=== PATIENT | male | born 1940 | race Two or more races ===

== ENCOUNTER 2022-08-23 20:27 | Inpatient (IN) | payer BC, MEDICARE ==
[~2022-08-23] VITALS: Ht 182.9 cm; Wt 72.6 kg
--- NOTE | 2022-08-23 20:39 | NUR ---
Patient placed in room 1A
--- NOTE | 2022-08-23 20:50 | NUR ---
Dr. Da Silva evaluating patient at bedside. MSE in progress.
--- NOTE | 2022-08-23 20:51 | NUR ---
Per Dr. Da Silva no saline lock required at this time.
--- NOTE | 2022-08-23 21:39 | NUR ---
Xray at bedside.
[2022-08-23 21:45] LABS: HEMATOCRIT 32.5 % (36.7-47.1); MEAN CORPUSCULAR HEMOGLOBIN 32.9 uug (23.8-33.4); MEAN CORPUSCULAR VOLUME 97.7 fL (73.0-96.2); PLATELET COUNT (AUTO) 277 K/uL (152-348)
[2022-08-23 21:58] LABS: CARBON DIOXIDE 28 mmol/L (21-32); CHLORIDE 100 mmol/L (98-107); GLUCOSE 108 mg/dL (74-106); MAGNESIUM 2.2 mg/dL (1.8-2.4); UREA NITROGEN, BLOOD 45 mg/dL (7-18)
--- NOTE | 2022-08-23 22:13 | NUR ---
Called [employer] to notify of defibrillator firing. Spoke with [employer] rep which stated they will page [employer] client service consultant.
--- NOTE | 2022-08-23 22:26 | NUR ---
Per [employer] sediment remediation consultant Katlyn, she will be here to interrogate patient 30min-1hr.
--- NOTE | 2022-08-23 23:48 | NUR ---
called patient's portrait artist Dr Fuller - made aware for plan of transfer to [facility]
--- NOTE | 2022-08-23 23:54 | NUR ---
Dr Fuller called back for peer to peer with Dr Da Silva
--- NOTE | 2022-08-24 02:58 | NUR ---
Patient resting comfortably in bed. No signs of distress noted.
--- NOTE | 2022-08-24 07:11 | NUR ---
Report given to Geo RODRIGUEZ
--- NOTE | 2022-08-24 08:55 | NUR ---
Gave pt breakfast tray.
--- NOTE | 2022-08-24 09:21 | NUR ---
Pt resting in bed, no complaints, no distress noted. per , gave pt his AM medication: held Amlodipine and Coreg. Addendum: 08/24/22 at 0934 by [email or web address] MD authorized AM dose of Amlodipine for pt.
--- NOTE | 2022-08-24 09:38 | NUR ---
Left message for [facility] site operations manager.
--- NOTE | 2022-08-24 11:31 | NUR ---
L/M for rifle case repairer again.
--- NOTE | 2022-08-24 17:04 | NUR ---
received report from Geo HOPSON RN. pt acx4. presented to er for AICD evaluation. pt in no acute distres. vitals wnl. saira knee edema noted. vitals WNL. skin intact. BUN and Crea elevated. pt ambulatory. dr. guerrero will f/u care.
--- NOTE | 2022-08-24 17:50 | NUR ---
pt arrived at the unit.aox 4. ambulatory. vitals wnl. body check done skin intact. R knee non pitting edema and saira ankle pitting edema +4 noted.
[2022-08-24 17:53] VITALS: BP 125/50
[2022-08-24] MEDS ORDERED: DOCU100C36 PO (18:33)
[2022-08-24] MEDS ORDERED: GABA-536 PO (18:33)
[2022-08-24] MEDS ORDERED: SACU1TAB7 PO (18:33)
[2022-08-24] MEDS ORDERED: CARV25TA2 PO (18:33)
[2022-08-24] MEDS ORDERED: SPIR25TA6 PO (18:33)
[2022-08-24] MEDS ORDERED: LEVO88TA5 PO (18:33)
[2022-08-24] MEDS ORDERED: FURO40TA5 PO (18:33)
[2022-08-24] MEDS ORDERED: FERR-68 PO (18:33)
[2022-08-24] MEDS ORDERED: ATOR80TA PO (18:33)
[2022-08-24] MEDS ORDERED: AMIO100T4 PO (18:33)
[2022-08-24] MEDS ORDERED: GLIP2.5T3 PO (18:33)
[2022-08-24] MEDS ORDERED: EZET10TA15 PO (18:33)
[2022-08-24] MEDS ORDERED: TAMS-3 PO (18:33)
[2022-08-24] MEDS ORDERED: ASPI81TA31 PO (18:33)
[2022-08-24] MEDS ORDERED: MORPHINE SULFATE 2 MG/1 ML DISP.SYRIN IV PRN (19:00)
[2022-08-24] MEDS ORDERED: ONDANSETRON 4 MG/2 ML VIAL IV PRN (19:00)
[2022-08-24] MEDS ORDERED: ACETAMINOPHEN 325 MG TABLET PO PRN (19:00)
[2022-08-24] MEDS ORDERED: DOCUSATE SODIUM 100 MG CAPSULE PO PRN (19:00)
[2022-08-24] MEDS ORDERED: TEMAZEPAM 7.5 MG CAPSULE PO PRN (19:30)
[2022-08-24 20:00] VITALS: BP 125/58
[2022-08-24] MEDS: EZETIMIBE 10 MG TABLET PO SCH (20:07)
[2022-08-24] MEDS: DOCUSATE SODIUM 100 MG CAPSULE PO SCH (20:07)
[2022-08-24] MEDS: ATORVASTATIN 40 MG TABLET PO SCH (20:07)
[2022-08-24] MEDS: TAMSULOSIN HCL 0.4 MG CAP.SR.24H PO SCH (20:07)
[2022-08-25] VITALS: BP 122/60
--- NOTE | 2022-08-25 00:30 | NUR ---
Received a call from Earline case management manager at [facility] saying that there is a bed available but needs the attending physician to communicate with their physician at this time. Only on-call MD is available. Transfer was not done. Will endorse to incoming nurse.
[2022-08-25 04:00] VITALS: BP 111/45
[2022-08-25] MEDS: PANTOPRAZOLE SODIUM 40 MG TABLET.DR PO SCH (06:03)
[2022-08-25 06:30] LABS: HEMATOCRIT 30.7 % (36.7-47.1); MEAN CORPUSCULAR HEMOGLOBIN 33.2 uug (23.8-33.4); MEAN CORPUSCULAR VOLUME 96.4 fL (73.0-96.2); PLATELET COUNT (AUTO) 283 K/uL (152-348)
[2022-08-25] MEDS: AMIODARONE HCL 200 MG TABLET PO SCH ×4 (06:37→17:38)
--- NOTE | 2022-08-25 06:40 | NUR ---
Per Dr. Harris to give Amiodarone at 0630 and skip 0900 and to give the next dose at 1300. Per pharmacy, they are unable to cancel the 0900 as scheduled and to put it as not given. Will endorse to incoming nurse.
[2022-08-25 07:08] LABS: THYROID STIMULATING HORMONE 3.718 mIU/mL (0.358-3.740)
[2022-08-25 07:10] LABS: ALANINE AMINOTRANSFERASE 41 U/L (16-63); ALKALINE PHOSPHATASE 38 U/L (50-136); ASPARTATE AMINOTRANSFERASE 32 U/L (15-37); BILIRUBIN,TOTAL 0.5 mg/dL (0.2-1.0); CARBON DIOXIDE 25 mmol/L (21-32); CHLORIDE 104 mmol/L (98-107); CHOLESTEROL 89 mg/dL (<200); CREATININE 1.4 mg/dL (0.6-1.3); GLUCOSE 115 mg/dL (74-106); HDL CHOLESTEROL 36 mg/dL (40-60); MAGNESIUM 2.1 mg/dL (1.8-2.4); PHOSPHOROUS 3.5 mg/dL (2.5-4.9); POTASSIUM 4.1 mmol/L (3.5-5.1); TOTAL PROTEIN, SERUM 6.6 g/dL (6.4-8.2); TRIGLYCERIDES 101 MG/DL (30-150); UREA NITROGEN, BLOOD 34 mg/dL (7-18)
[2022-08-25] MEDS ORDERED: CARVEDILOL 12.5 MG TABLET PO SCH (08:00)
--- NOTE | 2022-08-25 08:16 | NUR ---
pt had episode of V Tach and Dr Godfrey notified about it
[2022-08-25] MEDS: FERROUS SULFATE 325 MG TABEC PO SCH (08:41)
[2022-08-25] MEDS: LEVOTHYROXINE SODIUM 88 MCG TABLET PO SCH (08:41)
[2022-08-25] MEDS: ASPIRIN 81 MG TAB.CHEW PO SCH (08:41)
[2022-08-25] MEDS: CARVEDILOL 25 MG TABLET PO SCH ×2 (08:42→17:39)
[2022-08-25] MEDS ORDERED: AMIODARONE HCL 200 MG TABLET PO SCH (09:00)
[2022-08-25 11:34] VITALS: BP 111/53
[2022-08-25 15:44] VITALS: BP 104/53
[2022-08-25 20:00] VITALS: BP 115/56
[2022-08-25] MEDS ORDERED: AMIO200T6 PO (20:09)
[2022-08-25] MEDS ORDERED: Morphine Sulfate Inj IV (20:09)
[2022-08-25] MEDS ORDERED: ATOR20TA PO (20:09)
[2022-08-25] MEDS ORDERED: ONDA4VIA23 IV (20:09)
[2022-08-25] MEDS ORDERED: DOCU-141 PO (20:09)
[2022-08-25] MEDS ORDERED: TAMS-3 PO (20:09)
[2022-08-25] MEDS ORDERED: TEMA7.5C PO (20:09)
[2022-08-25] MEDS ORDERED: PANT40TA49 PO (20:09)
[2022-08-25] MEDS: EZETIMIBE 10 MG TABLET PO SCH (20:27)
[2022-08-25] MEDS: DOCUSATE SODIUM 100 MG CAPSULE PO SCH (20:27)
[2022-08-25] MEDS: TAMSULOSIN HCL 0.4 MG CAP.SR.24H PO SCH (20:27)
[2022-08-25] MEDS: ATORVASTATIN 40 MG TABLET PO SCH (20:27)
--- NOTE | 2022-08-25 21:00 | NUR ---
Spoke to Deborah at [facility]. File is complete but no bed available yet. She will touch base with case hardener for an update tomorrow to set up the transfer. Dr. Birch made aware.
[2022-08-26] VITALS: BP 100/49
[2022-08-26 04:00] VITALS: BP 109/52
[2022-08-26] MEDS: PANTOPRAZOLE SODIUM 40 MG TABLET.DR PO SCH (06:12)
[2022-08-26] MEDS: LEVOTHYROXINE SODIUM 88 MCG TABLET PO SCH (08:15)
[2022-08-26] MEDS: CARVEDILOL 25 MG TABLET PO SCH ×2 (08:15→17:33)
[2022-08-26] MEDS: FERROUS SULFATE 325 MG TABEC PO SCH (08:15)
[2022-08-26] MEDS: ASPIRIN 81 MG TAB.CHEW PO SCH (08:15)
[2022-08-26] MEDS: AMIODARONE HCL 200 MG TABLET PO SCH ×3 (08:17→17:34)
[2022-08-26 12:07] VITALS: BP 138/70
[2022-08-26] MEDS ORDERED: HALOPERIDOL LACTATE 5 MG/1 ML VIAL IM ONE (15:30)
[2022-08-26 16:05] VITALS: BP 121/61
--- NOTE | 2022-08-26 18:02 | NUR ---
Pt. is alert and awake. Compliance with the care given. No change in condition noted. call light within reach. Able to ambulate with walker and assist. All need attended and met. Noted at his bedside. Plan was to transfer the pt. to [facility] and I contacted Diana case loader operator and she said is not arranged yet. Will keep monitoring the pt.
--- NOTE | 2022-08-26 19:20 | NUR ---
Received patient in bed alert oriented, no sob no chest pain, tele sinus rhythm at this time, no complain of pain, continent, uses urinal for bladder eliminations, cont to monitor.
[2022-08-26 20:13] VITALS: BP 111/53
[2022-08-26] MEDS: EZETIMIBE 10 MG TABLET PO SCH (20:17)
[2022-08-26] MEDS: DOCUSATE SODIUM 100 MG CAPSULE PO SCH (20:17)
[2022-08-26] MEDS: TAMSULOSIN HCL 0.4 MG CAP.SR.24H PO SCH (20:17)
[2022-08-26] MEDS: ATORVASTATIN 40 MG TABLET PO SCH (20:17)
[2022-08-27 00:20] VITALS: BP 108/52
[2022-08-27 04:13] VITALS: BP 122/62
[2022-08-27] MEDS: PANTOPRAZOLE SODIUM 40 MG TABLET.DR PO SCH (06:21)
--- NOTE | 2022-08-27 07:30 | NUR ---
MORNING REPORT: 1) MENTAL STATE: AOx4 2) BREATHING: On RA - no sign of SOB, or distress observed. 3) SAFETY: Bed lowered, cooper, galvan within reach, no clutter around the bed, assured patient to reach out to RN if needed. 4) IV ACCESS: RFA 20g- site patent, clean, dry, no sign of infection or inflammation observed. 5) ELIMINATION: Patient has BRP 6) HYGIENE: Self caring 7) EATING & DRINKING: Cardiac diet - self feeder 8) SKIN : Intact 9) COMMUNICATION: No language barrier - speaks clear [place]. 10) VITALS: Within limits 11) PLAN: (i) To go home and wait for [facility] bed for pacemaker procedure.
[2022-08-27] MEDS: LEVOTHYROXINE SODIUM 88 MCG TABLET PO SCH (09:10)
[2022-08-27] MEDS: ASPIRIN 81 MG TAB.CHEW PO SCH (09:10)
[2022-08-27] MEDS: AMIODARONE HCL 200 MG TABLET PO SCH ×2 (09:10→17:42)
[2022-08-27] MEDS: FERROUS SULFATE 325 MG TABEC PO SCH (09:10)
[2022-08-27] MEDS: CARVEDILOL 25 MG TABLET PO SCH ×2 (09:14→17:42)
--- NOTE | 2022-08-27 09:15 | NUR ---
MEDICATION: 1) Medication administered as prescribe 2) Will continue to monitor and treat accordingly
[2022-08-27 09:45] LABS: HEMATOCRIT 32.7 % (36.7-47.1); MEAN CORPUSCULAR HEMOGLOBIN 32.8 uug (23.8-33.4); MEAN CORPUSCULAR VOLUME 97.3 fL (73.0-96.2); PLATELET COUNT (AUTO) 305 K/uL (152-348)
--- NOTE | 2022-08-27 11:05 | NUR ---
MOBILITY: 1) Patient was mobilizing with a walker in the corridor with a family member. 2) Seems a little breathless, was encouraged to continue to take rest in between.
[2022-08-27 11:20] LABS: CARBON DIOXIDE 26 mmol/L (21-32); CHLORIDE 102 mmol/L (98-107); CREATININE 1.4 mg/dL (0.6-1.3); GLUCOSE 142 mg/dL (74-106); POTASSIUM 3.9 mmol/L (3.5-5.1); UREA NITROGEN, BLOOD 23 mg/dL (7-18)
[2022-08-27 11:24] LABS: MAGNESIUM 2.1 mg/dL (1.8-2.4); PHOSPHOROUS 3.2 mg/dL (2.5-4.9)
[2022-08-27 12:00] VITALS: BP 113/61
--- NOTE | 2022-08-27 13:01 | NUR ---
ROUNDIN) Checked on patient - watching tv and no sign of distress observed. 2) Will continue to proved care accordingly.
--- NOTE | 2022-08-27 15:30 | NUR ---
No change in condition - will continue to treat accordingly
[2022-08-27 16:00] VITALS: BP 122/68
[2022-08-27] MEDS: FUROSEMIDE 20 MG TABLET PO SCH (16:00)
--- NOTE | 2022-08-27 17:19 | NUR ---
MEDICATION/DIURETICS: 1) Started on Lasix this afternoon, however, patient normally has it in the morning there needs it changed. 2) Will endorse this care to night staff accordingly
--- NOTE | 2022-08-27 17:46 | NUR ---
MEDICATION: Administered as prescribed - no concerns expressed by both patient and .
--- NOTE | 2022-08-27 18:24 | NUR ---
ENDORSEMENT TO NIGHT STAFF: 1) Will endorse care accordingly to night staff. 2) Patient clinically stable. 3) No sign of distress, sob, pain observed at the time of this report.
[2022-08-27 20:00] VITALS: BP 114/54
[2022-08-27] MEDS: EZETIMIBE 10 MG TABLET PO SCH (20:20)
[2022-08-27] MEDS: ATORVASTATIN 40 MG TABLET PO SCH (20:20)
[2022-08-27] MEDS: TAMSULOSIN HCL 0.4 MG CAP.SR.24H PO SCH (20:20)
[2022-08-27] MEDS: DOCUSATE SODIUM 100 MG CAPSULE PO SCH (20:21)
[2022-08-28] VITALS: BP 122/63
[2022-08-28 04:00] VITALS: BP 128/56
[2022-08-28] MEDS: PANTOPRAZOLE SODIUM 40 MG TABLET.DR PO SCH (06:42)
--- NOTE | 2022-08-28 08:08 | NUR ---
Awake, alert, oriented x 4. sitting at the edge of bed. Denies chest pain.
[2022-08-28] MEDS: CARVEDILOL 25 MG TABLET PO SCH ×2 (09:00→17:31)
[2022-08-28] MEDS: ASPIRIN 81 MG TAB.CHEW PO SCH (09:00)
[2022-08-28] MEDS: FUROSEMIDE 20 MG TABLET PO SCH (09:01)
[2022-08-28] MEDS: AMIODARONE HCL 200 MG TABLET PO SCH ×2 (09:01→17:31)
[2022-08-28] MEDS: FERROUS SULFATE 325 MG TABEC PO SCH (09:01)
[2022-08-28] MEDS: LEVOTHYROXINE SODIUM 88 MCG TABLET PO SCH (09:02)
[2022-08-28 11:33] VITALS: BP 130/58
--- NOTE | 2022-08-28 12:22 | NUR ---
Sitting at edge of bed, eating lunch, comfortable
--- NOTE | 2022-08-28 15:00 | NUR ---
Ambulating in the hallway with FWW with family
[2022-08-28 15:26] VITALS: BP 124/63
--- NOTE | 2022-08-28 19:40 | NUR ---
Patient in bed alert oriented, no sob no chest pain, tele monitor AV pacing, no complain of pain, ambulate to toilet, continent cont to monitor.
[2022-08-28 20:00] VITALS: BP 120/55
[2022-08-28] MEDS: DOCUSATE SODIUM 100 MG CAPSULE PO SCH (21:34)
[2022-08-28] MEDS: TAMSULOSIN HCL 0.4 MG CAP.SR.24H PO SCH (21:34)
[2022-08-28] MEDS: ATORVASTATIN 40 MG TABLET PO SCH (21:34)
[2022-08-28] MEDS: EZETIMIBE 10 MG TABLET PO SCH (21:39)
[2022-08-29] VITALS: BP 124/55
[2022-08-29 04:00] VITALS: BP 121/56
--- NOTE | 2022-08-29 04:00 | NUR ---
Patient asleep but arousable, no sob no chest pain, no complain of pain, AV pacing on tele, no complain of pain, cont to monitor.
[2022-08-29] MEDS: PANTOPRAZOLE SODIUM 40 MG TABLET.DR PO SCH (06:11)
[2022-08-29 06:54] LABS: HEMATOCRIT 30.8 % (36.7-47.1); MEAN CORPUSCULAR HEMOGLOBIN 32.4 uug (23.8-33.4); MEAN CORPUSCULAR VOLUME 96.7 fL (73.0-96.2); PLATELET COUNT (AUTO) 305 K/uL (152-348)
[2022-08-29 07:26] LABS: CARBON DIOXIDE 27 mmol/L (21-32); CHLORIDE 104 mmol/L (98-107); CREATININE 1.3 mg/dL (0.6-1.3); GLUCOSE 109 mg/dL (74-106); MAGNESIUM 2.2 mg/dL (1.8-2.4); PHOSPHOROUS 3.3 mg/dL (2.5-4.9); POTASSIUM 3.9 mmol/L (3.5-5.1); UREA NITROGEN, BLOOD 28 mg/dL (7-18)
[2022-08-29 08:51] VITALS: BP 117/48
[2022-08-29] MEDS: LEVOTHYROXINE SODIUM 88 MCG TABLET PO SCH (09:00)
[2022-08-29] MEDS: AMIODARONE HCL 200 MG TABLET PO SCH (09:01)
[2022-08-29] MEDS: CARVEDILOL 25 MG TABLET PO SCH (09:01)
[2022-08-29] MEDS: ASPIRIN 81 MG TAB.CHEW PO SCH (09:01)
[2022-08-29] MEDS: FERROUS SULFATE 325 MG TABEC PO SCH (09:01)
[2022-08-29] MEDS: FUROSEMIDE 20 MG TABLET PO SCH (09:01)
[2022-08-29] MEDS ORDERED: FURO-152 PO (10:05)
[2022-08-29] MEDS ORDERED: AMIO200T6 PO (10:05)
[2022-08-29 11:30] VITALS: BP 112/45
--- NOTE | 2022-08-29 11:34 | NUR ---
Pt was seen by hospitalist and youth agent. pt is medically cleared for discharge. pt will go home with spouse.
--- NOTE | 2022-08-29 11:35 | NUR ---
home meds was given to the pt.
--- NOTE | 2022-08-29 11:56 | NUR ---
pt is discharge. pt aox4. ambulatory. in no acute distress. denies any pain or discomfort. pt will go home with via private car. exit care provided. belonging all accounted for. home meds was returned with the pt. iv access removed.
== END 2022-08-29 12:00 | disposition home or self-care (01) | DRG 308 ==
LOC: ER 20:27 → TELE3 08-24 16:49
PROVIDERS: ADMIT Internal Medicine; ATTEND Internal Medicine
DX: I47.20 Ventricular tachycardia, unspecified (principal); N17.0 Acute kidney failure with tubular necrosis; I50.22 Chronic systolic (congestive) heart failure; I13.0 Hypertensive heart and chronic kidney disease with heart failure and stage 1 through stage 4 chronic kidney disease, or unspecified chronic kidney disease; I25.5 Ischemic cardiomyopathy; Z95.810 Presence of automatic (implantable) cardiac defibrillator; I25.10 Atherosclerotic heart disease of native coronary artery without angina pectoris; Z98.61 Coronary angioplasty status; Z95.1 Presence of aortocoronary bypass graft; E78.5 Hyperlipidemia, unspecified; Z79.899 Other long term (current) drug therapy; N18.9 Chronic kidney disease, unspecified; N40.0 Benign prostatic hyperplasia without lower urinary tract symptoms; K21.9 Gastro-esophageal reflux disease without esophagitis; E11.42 Type 2 diabetes mellitus with diabetic polyneuropathy; E11.22 Type 2 diabetes mellitus with diabetic chronic kidney disease; E03.9 Hypothyroidism, unspecified; Z79.890 Hormone replacement therapy; Z75.1 Person awaiting admission to adequate facility elsewhere; Z20.822 Contact with and (suspected) exposure to COVID-19
CPT/HCPCS: 36415; 71045; 83735; 84100; 84443; 84484; 85025; 93005; 93307; G0378